=== PATIENT | female | born 1985 | race Caucasian/White ===

== ENCOUNTER 2017-11-25 13:48 | Inpatient (IN) | payer BC, SELFPAY ==
[2017-11-25 19:42] LABS: HCT 36.6 % (36.0-46.0); HGB 12.5 g/dL (12.0-15.5); Mean Corp. HGB Concentration 34.2 g/dL (32.0-36.0); Mean Corpuscular Hemoglobin 32.4 pg (27.0-33.0); Mean Corpuscular Volume 94.8 fL (80-95); Platelet Count 224 x1000/uL (130-400); RBC 3.86 m/cumm (4.00-5.20); RBC Distribution Width 12.2 % (11.7-14.6); White Blood Cell Count 8.84 k/cumm (4.4-10.8)
--- NOTE | 2017-11-25 22:27 | HPE_ITS ---
DATE OF ADMISSION: November 25, 2017 ASSESSMENT: Term IUP, early labor, intact membranes, GBS negative. PLAN: Expect . Continue ambulation. Intermittent monitoring. She is not at risk for emanuel ulder dystocia although we will maintain awareness as we do with all deliveries. HISTORY OF PRESENT ILLNESS: She is a 32-year-old, G2, P1 at 40 and 2 days. Early this morning with some uterine activity which became more regular as the day went along. By noontime she presented to our office where she had contractions q.6. Cervix was about 4 cm and she had a reactive reassure cat egory 1 NST. Here at the hospital contractions have been mild to moderate in the 6 to 8 minute range. She has had two blood pressures in the 136/74 range. She has no headache, no blurry vision, no abdominal pain, no pedal edema, no unusual weight gain. EVALUATION: Positive for abnormal Pap which was treated with LEEP in 2007. She had a 37-we ek delivery of a 6-pound 3-ounce girl. She had hypertension that was related that led to i nduction for that at 37 weeks. She had a single elevated pressure three days ago at 140/90 that with rest settled into the 120/70s. She had negative toxemia labs, a normal platelet count, normal uric acid, BUN and creatinine. She h as had a history of hyperthyroidism during her . TSHs have trended up from the 0.1 range to the 0.3 range. She feels well. She has had no thyroid palpated. LABS: She is HIV negative. Urine toxicology screen was negative. TSH 0.29. Hemoglobin 12. Blood type A, Rh positive. RPR nonreactive. Hepatitis B nonreactive. Rubella positive with a titer of 6. 44. GC and chlamydia were negative. Hemoglobin A1c 5.0. EXAM: Cervix about 6 cm, 50% effaced, -1 station, vertex currently the baby is OT, facing to materna l left. Extremities showed no edema. Belly is benign with about a 37-38 cm fundal height. Membrane s are intact. Lungs are clear. Heart is regular. She is ambulatory and comfortable. Vitals per e flowsheet. cc: [facility]
[2017-11-26] MEDS: Oxytocin 10 UNITS/ML VIAL IM (00:30)
--- NOTE | 2017-11-26 07:03 | ROE_ITS ---
DELIVERY NOTE DATE November 26, 2017 Trisha's labor progressed steadily without augmentation or induction. heart tones were excel lent throughout. Tameka walked quite a bit, had excellent labor support and made steady cervical change . When she was about 7 or 8 cm, membranes were ruptured, contractions became more intense thereafter. heart tones remained excellent with no decelerations, essentially category 1. At this point, she got into the tub, contractions maintained their intense quality and she pushed maybe for 10 or 15 minutes, crowned with excellent control. OA presentation. No nuchal cord. The restituted to m aternal right. Tameka was in all fours position and shoulders delivered readily with a single push. No hint of any dystocia. The infant was then brought from under the water up onto mom's chest, at whic h time she had spontaneous respirations. The was kept warm with [id number]. The cord was cut at about 2 minutes, a three-vessel cord, and at about 15 intact placenta was delivered. At this poi nt, IM Pitocin was given. The baby was moved to the warmer. Tameka walked back to bed via the shower an d perineal exam yielded no lacerations, just a tiny skid morenita on the right anterior vagina. Rectal ex am showed intact sphincter and no tears. Estimated blood loss about 200 cc. Routine orders were entered and Tameka was within the hour of delivery. CC: [facility]
[2017-11-26] MEDS: Ibuprofen 600 MG TAB PO (09:27)
== END 2017-11-27 12:55 | disposition home or self-care (01) | DRG 775 ==
PROVIDERS: Admitting Provider Family Medicine; PCP Family Medicine; Visit Provider Family Medicine
DX: O48.0 Post-term pregnancy (principal); Z37.0 Single live birth; Z3A.40 40 weeks gestation of pregnancy
CPT/HCPCS: 36415; 85027; 86850; 86900; 86901; G0378; J2590